=== PATIENT | male | born 1980 | race Two or more races ===

== ENCOUNTER 2019-05-14 13:10 | Emergency (ER) | payer SELFPAY ==
[~2019-05-14] VITALS: Ht 172.7 cm; Wt 100.0 kg
[2019-05-14] MEDS ORDERED: KETOROLAC 60MG/2ML VIAL IM ONE (14:15)
[2019-05-14] MEDS ORDERED: DEXAMETHASONE 10 MG/ML VIAL IM ONE (14:15)
[2019-05-14 14:30] VITALS: BP 118/73
== END 2019-05-14 14:32 | disposition home or self-care (01) ==
LOC: ER 13:10
DX: S39.012A Strain of muscle, fascia and tendon of lower back, initial encounter (principal); X50.0XXA Overexertion from strenuous movement or load, initial encounter; Y93.89 Activity, other specified; Y92.89 Other specified places as the place of occurrence of the external cause; Y99.8 Other external cause status
CPT/HCPCS: 96372; 99283; J1100; J1885